=== PATIENT | male | born 1945 | race Caucasian/White ===

== ENCOUNTER 2017-06-12 15:54 | Observation (INO) | payer MEDICARE ==
[2017-06-12 17:23] LABS: ABSOLUTE EOSINOPHILS # (AUTO) 0.3 10^3/uL (0.0-0.6); ABSOLUTE LYMPHOCYTES (AUTO) 1.2 10^3/uL (0.5-4.7); ABSOLUTE MONOCYTES (AUTO) 0.9 10^3/uL (0.1-1.4); ABSOLUTE NEUT (AUTO) 7.5 10^3/uL (1.7-8.2); BASOPHILS % (AUTO) 0.2 % (0-2); EOSINOPHILS % (AUTO) 2.9 % (0-6); HEMATOCRIT 41.3 % (37.9-51.0); LYMPHOCYTES % (AUTO) 12.6 % (13-45); MEAN CORPUSCULAR HEMOGLOBIN 30.4 pg (27.0-33.4); MEAN CORPUSCULAR HGB CONC 33.9 g/dL (32.0-36.0); MEAN CORPUSCULAR VOLUME 90 fl (80-97); MONOCYTES % (AUTO) 8.8 % (3-13); PLATELET COUNT 125 10^3/uL (150-450); RED CELL DISTRIBUTION WIDTH 13.8 % (11.5-14.0); SEGMENTED NEUTROPHILS % (AUTO) 75.5 % (42-78); TOTAL CELLS COUNTED % (AUTO) 100 %; WHITE BLOOD COUNT 9.9 10^3/uL (4.0-10.5)
--- NOTE | 2017-06-12 17:27 | ER Document Report ---
ED Syncope and Near Syncope - General Chief Complaint: Syncope Stated Complaint: ALTERED MENTAL STATUS Time Seen by Provider: 06/12/17 17:07 Notes: 71-year-old male arrives here via EMS for evaluation of syncopal episode. Patient was at physical therapy when he had a syncopal episode. Denies any chest pain or shortness of breath at this time. Denies any symptoms at this time. States that he had a recent stress test approximately 9 months ago which was normal. No prior history of DVT. No prior history of pulmonary embolism. No abdominal pain. No changes in head, eyes, ears, nose, throat, chest, abdomen , extremities. Patient states that he feels completely back to normal at this time. Reports that today he did not have anything to eat other than a Gatorade sports drink and then he went to his therapy appointment. States that he has been taking some MiraLAX and some herbal digestive aids because he has had some constipation over the last couple of days but no abdominal pain. He states that his parents a few days ago and that has potentially affected him. - HPI Patient complains to provider of: Fainting Episode witnessed (by whom): Yes Symptoms prior to episode: None - Related Data Allergies/Adverse Reactions: Sulfa (Sulfonamide Antibiotics) Allergy (Verified 06/12/17 19:18) Past Medical History - General Information source: Patient - Social History Smoking Status: Never Smoker Cigarette use (# per day): No Smoking Education Provided: No Frequency of alcohol use: None Drug Abuse: None Lives with: Family Family History: Reviewed & Not Pertinent - Past Medical History Cardiac Medical History: Reports: Hx Hypertension Pulmonary Medical History: Reports: None EENT Medical History: Reports: None Neurological Medical History: Reports: None Endocrine Medical History: Reports: Other - Prediabetes Renal/ Medical History: Reports: None Malignancy Medical History: Reports None GI Medical History: Reports: None Musculoskeltal Medical History: Reports None Skin Medical History: Reports None Psychiatric Medical History: Reports: None Traumatic Medical History: Reports: None Infectious Medical History: Reports: None Review of Systems - Review of Systems Constitutional: No symptoms reported EENT: No symptoms reported Cardiovascular: Syncope Respiratory: No symptoms reported Gastrointestinal: No symptoms reported Genitourinary: No symptoms reported Male Genitourinary: No symptoms reported Musculoskeletal: No symptoms reported Skin: No symptoms reported Hematologic/Lymphatic: No symptoms reported Neurological/Psychological: No symptoms reported Physical Exam - Vital signs Vitals: Resp Pulse Ox 15 96 06/12/17 16:01 06/12/17 16:01 Interpretation: Normal - General General appearance: Appears well, Alert - HEENT Head: Normocephalic, Atraumatic Eyes: Normal Pupils: PERRL - Respiratory Respiratory status: No respiratory distress Chest status: Nontender Breath sounds: Normal Chest palpation: Normal - Cardiovascular Rhythm: Regular Heart sounds: Normal auscultation Murmur: No - Abdominal Inspection: Normal Distension: No distension Bowel sounds: Normal Tenderness: Nontender Organomegaly: No organomegaly - Back Back: Normal, Nontender - Extremities General upper extremity: Normal inspection, Nontender, Normal color, Normal ROM , Normal temperature General lower extremity: Normal inspection, Nontender, Normal color, Normal ROM , Normal temperature, Normal weight bearing. No: Gloria's sign - Neurological Neuro grossly intact: Yes Cognition: Normal Orientation: AAOx4 Julia Coma Scale Eye Opening: Spontaneous [place] Coma Scale Verbal: Oriented Julia Coma Scale Motor: Obeys Commands [place] Coma Scale Total: 15 Speech: Normal Motor strength normal: LUE, RUE, LLE, RLE Sensory: Normal - Psychological Associated symptoms: Normal affect, Normal mood - Skin Skin Temperature: Warm Skin Moisture: Dry Skin Color: Normal Course - Re-evaluation Re-evalutation: 06/12/17 18:43 Patient has elevated troponin at 0.19. Denies any chest pain at this time. Have to consider that with a syncopal episode this could definitely be a real event. Starting on heparin. Aspirin given. IV fluids given. Attempting to get patient transferred immediately at patient's request to [facility]. Awaiting callback from [facility]. 06/12/17 19:[address] Jain at [facility]. Does not feel patient needs to be transferred immediately. Wants a second troponin. I still feel patient needs to be transferred and patient requests to be transferred however there is a limitation on beds apparently at that facility. I am adding a second troponin based on Dr. Jain's request. Getting a second EKG. Ordering bilateral lower extremity venous study based on this recent history of leg pain and syncope to make sure that he does not have a DVT which could have resulted in a pulmonary embolism. At this time patient's heart rate is in the 70s, oxygen saturation is 98% on room air. Normal blood pressure. It is currently 1945 and I will sign out patient to Dr. Mendoza for review of troponin and call Dr. Jain back. I do have Dr. Jain's cell phone number to call. - Vital Signs Vital signs: Temp Pulse Resp BP Pulse Ox 17 129/77 H 98 06/12/17 18:43 06/12/17 18:43 06/12/17 18:43 - Laboratory Result Diagrams: 06/12/17 16:10 06/12/17 17:39 Laboratory results interpreted by me: 06/12/17 06/12/17 16:10 17:39 Plt Count 125 L Lymphocytes % 12.6 L Glucose 132 H Total Bilirubin 1.5 H Direct Bilirubin 0.5 H - EKG Interpretation by Pa EKG shows normal: Sinus rhythm, Rodney, Intervals, QRS Complexes, ST-T Waves Rhythm: PVC's Critical Care Note - Critical Care Note Total time excluding time spent on procedures (mins): 60 Discharge - Discharge Clinical Impression: Syncope and collapse, Elevated troponin I level Condition: Stable
--- NOTE | 2017-06-12 17:39 | RADIOLOGY REPORT (SQ) ---
EXAM DESCRIPTION: CHEST SINGLE VIEW COMPLETED DATE/TIME: 06/12/2017 5:26 pm REASON FOR STUDY: syncope COMPARISON: None. NUMBER OF VIEWS: One view. TECHNIQUE: Single frontal radiographic view of the chest acquired. LIMITATIONS: None. FINDINGS: LUNGS AND PLEURA: No opacities, masses or pneumothorax. No pleural effusion. MEDIASTINUM AND HILAR STRUCTURES: No masses. Contour normal. HEART AND VASCULAR STRUCTURES: Heart enlarged without failure. Normal vasculature. BONES: No acute findings. HARDWARE: None in the chest. OTHER: No other significant finding. IMPRESSION: HEART ENLARGED WITHOUT FAILURE. NO OTHER SIGNIFICANT RADIOGRAPHIC FINDING IN THE CHEST. TECHNICAL DOCUMENTATION: JOB ID: [id number] [employer]- All Rights Reserved Reading location - IP/workstation name: [email or web address]
[2017-06-12 18:12] LABS: ALANINE AMINOTRANSFERASE 39 U/L (21-72); ALBUMIN 4.1 g/dL (3.5-5.0); ALKALINE PHOSPHATASE 60 U/L (38-126); ANION GAP 9 (5-19); ASPARTATE AMINO TRANSFERASE 33 U/L (17-59); BILIRUBIN,DIRECT 0.5 mg/dL (0.0-0.4); BILIRUBIN,TOTAL 1.5 mg/dL (0.2-1.3); BLOOD UREA NITROGEN 16 mg/dL (7-20); CALCIUM 9.6 mg/dL (8.4-10.2); CARBON DIOXIDE 25 mmol/L (22-30); CHLORIDE 105 mmol/L (98-107); CREATINE KINASE 149 U/L (55-170); GLUCOSE 132 mg/dL (75-110); POTASSIUM 4.5 mmol/L (3.6-5.0); SODIUM 139.4 mmol/L (137-145); TOTAL PROTEIN 6.9 g/dL (6.3-8.2)
[2017-06-12 18:24] LABS: CREATINE KINASE MB 2.49 ng/mL (<4.55)
[2017-06-12 18:27] LABS: TROPONIN I 0.193 ng/mL
[2017-06-12] MEDS ORDERED: ASPIRIN 81 MG TABLET, CHEWABLE PO ONE (18:36)
[2017-06-12] MEDS ORDERED: HEPARIN SODIUM,PORCINE/D5W 25,000 UNIT/250 ML RTUINJ IV PRN (18:39)
[2017-06-12] MEDS ORDERED: RINGERS SOLUTION,LACTATED 1,000 ML IV ONE (18:41)
[2017-06-12 19:06] LABS: INTERNATIONAL RATION (INR) 1.08; PROTHROMBIN TIME 14.8 SEC (11.4-15.4)
[2017-06-12 19:07] LABS: PARTIAL THROMBOPLASTIN TIME 30.6 SEC (23.5-35.8)
[2017-06-12] MEDS ORDERED: HEPARIN SOD (PORCINE) 1,000 UNIT/ML 10 ML VIAL IV ONE (19:17)
--- NOTE | 2017-06-12 20:01 | EKG REPORT ---
SEVERITY:- ABNORMAL ECG - SINUS RHYTHM VENTRICULAR PREMATURE COMPLEX LEFT ANTERIOR FASCICULAR BLOCK : Confirmed by: Lee Landry MD 12-Jun-2017 20:00:51
--- NOTE | 2017-06-12 21:01 | RADIOLOGY REPORT (SQ) ---
EXAM DESCRIPTION: VENOUS BILATERAL LOWER COMPLETED DATE/TIME: 06/12/2017 8:52 pm REASON FOR STUDY: Recent leg pains, syncopal episode COMPARISON: None. TECHNIQUE: Dynamic and static ng scale and color images acquired of both lower extremity venous sy stems. Selected spectral images acquired with additional compression and augmentation maneuvers. Imag es stored on PACS. LIMITATIONS: None. FINDINGS: RIGHT LEG COMMON FEMORAL AND FEMORAL: Normal phasicity, compression and augmentation. No visualized echogenic m aterial on ng scale. No defects on color images. POPLITEAL: Normal compression and augmentation. No visualized echogenic material on ng scale. No de fects on color images. CALF VESSELS: Normal compression and augmentation. No visualized echogenic material on ng scale. No defects on color image. GSV AND SSV: SSV not visualized. Normal compression. No visualized echogenic material on ng scale. No defects on color images. ANY DEEP VENOUS INSUFFICIENCY: No. ANY EVIDENCE OF POPLITEAL CYST: No. OTHER: No other significant finding. LEFT LEG COMMON FEMORAL AND FEMORAL: Normal phasicity, compression and augmentation. No visualized echogenic m aterial on ng scale. No defects on color images. POPLITEAL: Normal compression and augmentation. No visualized echogenic material on ng scale. No de fects on color images. CALF VESSELS: Normal compression and augmentation. No visualized echogenic material on ng scale. No defects on color images. GSV AND SSV: Normal compression. No visualized echogenic material on ng scale. No defects on color images. ANY DEEP VENOUS INSUFFICIENCY: No. ANY EVIDENCE POPLITEAL CYST: No. OTHER: No other significant finding. IMPRESSION: NO EVIDENCE DVT OR SVT IN EITHER LEG. TECHNICAL DOCUMENTATION: JOB ID: [id number] [email or web address]- All Rights Reserved Reading location - IP/workstation name: [email or web address]
[2017-06-12 21:12] LABS: APPEARANCE,URINE SLIGHTLY-CLOUDY; BILIRUBIN,URINE NEGATIVE (NEGATIVE); COLOR,URINE YELLOW; GLUCOSE, URINE NEGATIVE (NEGATIVE); KETONES,URINE 20 mg/dL (NEGATIVE); LEUKOCYTE ESTERASE,URINE NEGATIVE (NEGATIVE); NITRITE,URINE NEGATIVE (NEGATIVE); PROTEIN,URINE NEGATIVE (NEGATIVE); URINE SPECIFIC GRAVITY 1.011; UROBILINOGEN,URINE NEGATIVE mg/dL (<2.0)
[2017-06-12 21:27] LABS: URINE AMPHETAMINES SCREEN NEGATIVE; URINE BARBITURATES SCREEN NEGATIVE; URINE BENZODIAZEPINES SCREEN NEGATIVE; URINE COCAINE SCREEN NEGATIVE; URINE MARIJUANA (THC) SCREEN NEGATIVE; URINE METHADONE SCREEN NEGATIVE; URINE PHENCYCLIDINE SCREEN NEGATIVE
[2017-06-12] MEDS ORDERED: MAG HYDROX/AL HYDROX/SIMETH SUSP 30 ML UDCUP PO PRN (22:09)
[2017-06-12] MEDS ORDERED: IPRATROPIUM/ALBUTEROL 0.5-2.5 MG/3 ML AMPUL NEB PRN (22:09)
[2017-06-12] MEDS ORDERED: ACETAMINOPHEN 325 MG TABLET PO PRN ×2 (22:09→22:20)
--- NOTE | 2017-06-12 22:31 | ER Document Report ---
Doctor's Note Notes: 06/12/17 22:29 Received signout on this patient from Dr. Mendez. Patient was sent from physical therapy after having an episode of syncope. Discussed with patient. Patient initially felt dizzy, and nauseated. Patient had episode of emesis. He had also had some reflux symptoms recently. Patient's pet on Saturday, a parrot that he had had for 43 years. Patient has been upset about this and has had decreased p.o. intake over the last few days. Patient also tells me that he had a hiatal hernia. Regardless, patient did have a troponin of 0.1 here. Two troponin since then have been negative. Recent also had concerning symptoms at this time. Patient had been discussed with the hospitalist service who had wanted the third troponin done. The troponin is negative. Patient is agreeable to staying. Will be kept in telemetry observation. Discharge - Discharge Clinical Impression: Syncope and collapse, Elevated troponin I level Condition: Stable Disposition: ADMITTED OBSERVATION Admitting Provider: [facility] Admitted: Telemetry
--- NOTE | 2017-06-13 02:49 | PDOC H&P ---
History of Present Illness Admission Date/PCP: 06/12/17 22:31 Patient complains of: Syncope History of Present Illness: KENDRA CRUZ is a 71 year old male with a past medical history of hypertension , obesity and hiatal hernia. Patient presents with several days of constipation , grief, acid reflux culminating in an episode of unresponsiveness lasting 30 seconds during physical therapy. Patient had a prodrome of lightheadedness during his activities denying palpitations, chest pain, headache or shortness of breath. His episodes did not result in a fall or injury, incontinence or limb shaking and resolve spontaneously without a period of confusion however had 2 episodes of nonbilious nonbloody vomiting of gastric contents. He was brought to the emergency room for evaluation and had an entirely unremarkable workup with exception to a solitary troponin of 0.1 repeated 2 results below detected level. There is no associated elevation of CK or MB. He is referred to the hospitalist for observation. Patient admits negative cardiac stress testing 9 months ago. Patient is currently asymptomatic denying any new medications or previous episode. Past Medical History Cardiac Medical History: Reports: Hyperlipidema, Hypertension Pulmonary Medical History: Reports: None EENT Medical History: Reports: None Neurological Medical History: Reports: None Endocrine Medical History: Reports: Other - Prediabetes Renal/ Medical History: Reports: None Malignancy Medical History: Reports: None GI Medical History: Reports: None Musculoskeltal Medical History: Reports: None, Arthritis Skin Medical History: Reports: None Psychiatric Medical History: Reports: None Traumatic Medical History: Reports: None Infectious Medical History: Reports: None Social History Information Source: Patient Lives with: Family Smoking Status: Never Smoker Frequency of Alcohol Use: None Drugs: None - Advance Directive Resuscitation Status: Full Code Family History Family History: CVA Parental Family History Reviewed: Yes Children Family History Reviewed: Yes Sibling(s) Family History Reviewed.: Yes Medication/Allergy Allergies/Adverse Reactions: Sulfa (Sulfonamide Antibiotics) Allergy (Verified 06/12/17 19:18) Review of Systems Constitutional: PRESENT: as per HPI. ABSENT: chills, fever(s), headache(s), weight gain, weight loss Eyes: ABSENT: visual disturbances Ears: ABSENT: hearing changes Cardiovascular: ABSENT: chest pain, dyspnea on exertion, edema, orthropnea, palpitations Respiratory: ABSENT: cough, hemoptysis Gastrointestinal: PRESENT: constipation. ABSENT: abdominal pain, diarrhea, hematemesis, hematochezia, nausea, vomiting Genitourinary: ABSENT: dysuria, hematuria Musculoskeletal: ABSENT: joint swelling Integumentary: ABSENT: rash, wounds Neurological: ABSENT: abnormal gait, abnormal speech, confusion, dizziness, focal weakness, syncope Psychiatric: ABSENT: anxiety, depression, homidical ideation, suicidal ideation Endocrine: ABSENT: cold intolerance, heat intolerance, polydipsia, polyuria Hematologic/Lymphatic: ABSENT: easy bleeding, easy bruising Physical Exam Vital Signs: Temp Pulse Resp BP Pulse Ox 10 L 144/81 H 96 06/13/17 01:01 06/13/17 01:01 06/13/17 01:01 General appearance: PRESENT: no acute distress, well-developed, well-nourished Head exam: PRESENT: atraumatic, normocephalic Eye exam: PRESENT: conjunctiva pink, EOMI, PERRLA. ABSENT: scleral icterus Ear exam: PRESENT: normal external ear exam Mouth exam: PRESENT: moist, tongue midline Neck exam: ABSENT: carotid bruit, JVD, lymphadenopathy, thyromegaly Respiratory exam: PRESENT: clear to auscultation yoel. ABSENT: rales, rhonchi, wheezes Cardiovascular exam: PRESENT: RRR. ABSENT: diastolic murmur, rubs, systolic murmur Pulses: PRESENT: normal dorsalis pedis pul Vascular exam: PRESENT: normal capillary refill GI/Abdominal exam: PRESENT: normal bowel sounds, soft. ABSENT: distended, guarding, mass, organolmegaly, rebound, tenderness Rectal exam: PRESENT: deferred Extremities exam: PRESENT: full ROM. ABSENT: calf tenderness, clubbing, pedal edema Neurological exam: PRESENT: alert, awake, oriented to person, oriented to place , oriented to time, oriented to situation, CN II-XII grossly intact. ABSENT: motor sensory deficit Psychiatric exam: PRESENT: appropriate affect, normal mood. ABSENT: homicidal ideation, suicidal ideation Skin exam: PRESENT: dry, intact, warm. ABSENT: cyanosis, rash Results Impressions: Chest X-Ray 06/12/17 17:08 IMPRESSION: HEART ENLARGED WITHOUT FAILURE. NO OTHER SIGNIFICANT RADIOGRAPHIC FINDING IN THE CHEST. Venous Doppler Study 06/12/17 19:41 IMPRESSION: NO EVIDENCE DVT OR SVT IN EITHER LEG. Assessment & Plan - Diagnosis (1) Syncope and collapse Is this a current diagnosis for this admission?: Yes Plan: Observation on telemetry, IV fluid challenge, orthostatic blood pressure, serial cardiac enzymes, consider outpatient event monitor (2) Elevated troponin I level Is this a current diagnosis for this admission?: Yes Plan: Likely false-positive will obtain serial cardiac enzymes for comparison.
[2017-06-13] MEDS ORDERED: HEPARIN SOD (PORCINE) 5,000 UNIT/ML 1 ML SYRINGE SUBCUT SCH (06:00)
[2017-06-13 06:35] LABS: INTERNATIONAL RATION (INR) 1.08; PROTHROMBIN TIME 14.8 SEC (11.4-15.4)
[2017-06-13 06:45] LABS: ABSOLUTE EOSINOPHILS # (AUTO) 0.2 10^3/uL (0.0-0.6); ABSOLUTE LYMPHOCYTES (AUTO) 1.2 10^3/uL (0.5-4.7); ABSOLUTE MONOCYTES (AUTO) 0.8 10^3/uL (0.1-1.4); ABSOLUTE NEUT (AUTO) 6.7 10^3/uL (1.7-8.2); BASOPHILS % (AUTO) 0.3 % (0-2); EOSINOPHILS % (AUTO) 1.8 % (0-6); HEMATOCRIT 42.3 % (37.9-51.0); HEMOGLOBIN 14.4 g/dL (13.5-17.0); LYMPHOCYTES % (AUTO) 13.1 % (13-45); MEAN CORPUSCULAR HEMOGLOBIN 30.4 pg (27.0-33.4); MEAN CORPUSCULAR HGB CONC 34.1 g/dL (32.0-36.0); MEAN CORPUSCULAR VOLUME 89 fl (80-97); PLATELET COUNT 119 10^3/uL (150-450); RED BLOOD COUNT 4.74 10^6/uL (4.35-5.55); RED CELL DISTRIBUTION WIDTH 13.7 % (11.5-14.0); SEGMENTED NEUTROPHILS % (AUTO) 75.8 % (42-78); TOTAL CELLS COUNTED % (AUTO) 100 %; WHITE BLOOD COUNT 8.9 10^3/uL (4.0-10.5)
[2017-06-13 06:49] LABS: ANION GAP 10 (5-19); BLOOD UREA NITROGEN 14 mg/dL (7-20); CALCIUM 9.3 mg/dL (8.4-10.2); CARBON DIOXIDE 25 mmol/L (22-30); CHLORIDE 106 mmol/L (98-107); CREATINE KINASE 199 U/L (55-170); GLUCOSE 120 mg/dL (75-110); POTASSIUM 3.9 mmol/L (3.6-5.0); SODIUM 141.1 mmol/L (137-145)
[2017-06-13 06:59] LABS: CREATINE KINASE MB 3.24 ng/mL (<4.55)
[2017-06-13 07:00] LABS: TROPONIN I < 0.012 ng/mL
--- NOTE | 2017-06-13 09:32 | EKG REPORT ---
SEVERITY:- ABNORMAL ECG - SINUS RHYTHM LEFT ANTERIOR FASCICULAR BLOCK : Confirmed by: Lee Landry MD 13-Jun-2017 09:31:20
--- NOTE | 2017-06-13 09:34 | EKG REPORT ---
SEVERITY:- ABNORMAL ECG - SINUS RHYTHM VENTRICULAR PREMATURE COMPLEX VS ATRIAL PREMATURE BEAT WITH ABERRENT OCNDUCTION INCOMPLETE RBBB AND LAFB BORDERLINE PROLONGED QT INTERVAL : Confirmed by: Lee Landry MD 13-Jun-2017 09:32:44
[2017-06-13] MEDS ORDERED: DOCUSATE SODIUM 100 MG CAPSULE PO SCH (10:00)
[2017-06-13 12:11] VITALS: BP 136/81
--- NOTE | 2017-06-13 15:13 | PDOC DISCHARGE SUMMARY ---
General - Admit/Disc Date/PCP Admission Date/Primary Care Provider: 06/12/17 22:31 Discharge Date: 06/13/17 - Discharge Diagnosis (1) Syncope and collapse Is this a current diagnosis for this admission?: Yes Summary: Likely due to dehydration. He was initially orthostatic at the time of admission. This resolved with IV fluids. He has had no further dizzy spells. (2) Orthostatic hypotension Is this a current diagnosis for this admission?: Yes Summary: Due to dehydration. Resolved with IV fluids (3) Elevated troponin I level Is this a current diagnosis for this admission?: Yes Summary: Initial troponin was somewhat elevated. He had another set of 3 troponins all of which were normal. It was felt that this could have been a lab error. He does have an appointment with his primary care physician tomorrow. Will defer to him as to whether he wants to pursue further evaluation. (4) Dehydration Is this a current diagnosis for this admission?: Yes Summary: Secondary to poor p.o. intake due to grief reaction. Resolved with IV fluids (5) Grief reaction Is this a current diagnosis for this admission?: Yes Summary: The patient's parrot that he had had for 43 years on Saturday. The patient did not eat or drink for the next couple of days resulting in dehydration and syncope. (6) Hypertension Is this a current diagnosis for this admission?: Yes Summary: Blood pressure is back to normal. He will resume his home regimen. (7) Obesity (BMI 30-39.9) Is this a current diagnosis for this admission?: Yes Summary: Dietary discretion is advised (8) Constipation Is this a current diagnosis for this admission?: Yes Summary: Likely due to dehydration. Continue MiraLAX as needed. I will start the patient on a stool softener twice daily - Additional Information Resuscitation Status: Full Code Discharge Diet: Cardiac Discharge Activity: Activity As Tolerated, Balance Activity w/Rest, Slowly Increase Activity Prescriptions: Docusate Sodium [Colace 100 mg Capsule] 100 mg PO BID #60 capsule Home Medications: Aspirin [Aspirin EC] 81 mg PO DAILY 06/13/17 Docusate Sodium [Colace 100 mg Capsule] 100 mg PO BID #60 capsule 06/13/17 Simvastatin [Zocor 20 mg Tablet] 20 mg PO QHS 06/13/17 Trazodone HCl [Desyrel 50 mg Tablet] 50 mg PO QHS 06/13/17 Valsartan/Hydrochlorothiazide [Valsartan-Hctz 320-25 mg Tab] 1 each PO DAILY 05/02 Zolpidem Tartrate [Ambien 5 mg Tablet] 10 mg PO HSP PRN 06/13/17 History of Present Illness History of Present Illness: KENDRA CRUZ is a 71 year old male who presented to the hospital after having a brief episode of syncope at physical therapy. Hospital Course Hospital Course: The patient is a 71-year-old male who was at physical therapy doing his exercises when he had a brief syncopal episode. He states that he he became quite dizzy and said that he needed to sit down and then had an episode of syncope that lasted for just a few seconds. He was brought to the emergency room for further evaluation. The patient had recently lost a par earlier in the week that he had had as a pet for 43 years. He was so upset about this that he really did not eat or drink anything first a few days. At the time of his syncopal episode he really had not had anything to drink that entire day. In the emergency room his labs were normal except for a mildly elevated troponin level. He subsequently had 3 additional troponin levels drawn which remained totally normal. The admitting physicians thinks this may have been a lab error. In any event the patient was placed on a remote monitor. He received IV fluids as it was felt that he was somewhat dehydrated. He did have orthostatic hypotension at the time of admission which is since resolved. At this point the patient has excellent follow-up. He has an appointment scheduled with his primary care physician tomorrow. He states that he feels back to his baseline and is going to try to eat and drink more going forward. At this point it is felt that he can safely be discharged home. He will keep his appointment tomorrow for follow-up. Physical Exam Vital Signs: Temp Pulse Resp BP Pulse Ox 98.3 F 84 18 136/81 H 97 06/13/17 11:47 06/13/17 14:00 06/13/17 11:47 06/13/17 11:47 06/13/17 11:47 Intake & Output 06/12/17 06/13/17 06/14/17 06:59 06:59 06:59 Intake Total 280 473 Balance 280 473 Weight 123.8 kg General appearance: PRESENT: no acute distress, morbidly obese, well-developed, well-nourished Head exam: PRESENT: atraumatic, normocephalic Respiratory exam: PRESENT: clear to auscultation yoel. ABSENT: rales, rhonchi, wheezes Cardiovascular exam: PRESENT: RRR. ABSENT: diastolic murmur, rubs, systolic murmur GI/Abdominal exam: PRESENT: normal bowel sounds, soft. ABSENT: distended, guarding, mass, rebound, tenderness Rectal exam: PRESENT: deferred Extremities exam: PRESENT: full ROM. ABSENT: calf tenderness, clubbing, pedal edema Musculoskeletal exam: PRESENT: ambulatory Neurological exam: PRESENT: alert, awake, oriented to person, oriented to place , oriented to time, oriented to situation, CN II-XII grossly intact. ABSENT: motor sensory deficit Psychiatric exam: PRESENT: appropriate affect, normal mood. ABSENT: homicidal ideation, suicidal ideation Skin exam: PRESENT: dry, intact, warm. ABSENT: cyanosis, rash Results Laboratory Results: 06/13/17 06:22 06/13/17 06:22 06/13/17 06/13/17 06:22 06:22 WBC 8.9 RBC 4.74 Hgb 14.4 Hct 42.3 MCV 89 MCH 30.4 MCHC 34.1 RDW 13.7 Plt Count 119 L Seg Neutrophils % 75.8 Lymphocytes % 13.1 Monocytes % 9.0 Eosinophils % 1.8 Basophils % 0.3 Absolute Neutrophils 6.7 Absolute Lymphocytes 1.2 Absolute Monocytes 0.8 Absolute Eosinophils 0.2 Absolute Basophils 0.0 Sodium 141.1 Potassium 3.9 Chloride 106 Carbon Dioxide 25 Anion Gap 10 BUN 14 Creatinine 0.77 Est GFR ( Amer) > 60 Est GFR (Non-Af Amer) > 60 Glucose 120 H Calcium 9.3 06/13/17 06/13/17 06:22 06:22 Creatine Kinase 199 H CK-MB (CK-2) 3.24 Troponin I < 0.012 Impressions: Chest X-Ray 06/12/17 17:08 IMPRESSION: HEART ENLARGED WITHOUT FAILURE. NO OTHER SIGNIFICANT RADIOGRAPHIC FINDING IN THE CHEST. Venous Doppler Study 06/12/17 19:41 IMPRESSION: NO EVIDENCE DVT OR SVT IN EITHER LEG. Qualifiers - * [facility]INT BEING DISCHARGED WITH ANY OF THE FOLLOWING DIAGNOSIS?: No Plan Discharge Plan: He will be discharged home today in stable condition Time Spent: Greater than 30 Minutes
== END 2017-06-13 16:10 | disposition home or self-care (01) ==
LOC: ER 15:54 → EH 22:31 → 3S 06-13 02:31
PROVIDERS: ADMIT Internal Medicine; ATTEND Internal Medicine
DX: R55 Syncope and collapse (principal); I95.1 Orthostatic hypotension; F43.20 Adjustment disorder, unspecified; E86.0 Dehydration; R07.9 Chest pain, unspecified; R79.89 Other specified abnormal findings of blood chemistry; I10 Essential (primary) hypertension; E66.9 Obesity, unspecified; K59.00 Constipation, unspecified; E78.5 Hyperlipidemia, unspecified; Z68.39 Body mass index [BMI] 39.0-39.9, adult; Z79.82 Long term (current) use of aspirin; Z79.899 Other long term (current) drug therapy; Z82.3 Family history of stroke; Z87.39 Personal history of other diseases of the musculoskeletal system and connective tissue
CPT/HCPCS: 93005 ×2; 99285; 96361; 96374; 36415 ×2; 82553 ×2; 82550 ×2; 83735; 84443; 85025 ×2; 85610 ×2; 85730; 80048; 80053; 81001; 84484 ×2; 80307; 93970; 71045; 93010 ×2; A9270; J1644; J7120